=== PATIENT | female | born 1995 | race Caucasian/White ===

== ENCOUNTER 2017-01-31 02:59 | Inpatient (IN) | payer BC ==
[~2017-01-31] VITALS: Ht 167.6 cm; Wt 84.8 kg
[~2017-01-31 02:59] MED LIST: DOCU-144 PO; FER325 PO
[2017-01-31 03:31] VITALS: Ht 167.6 cm; Wt 84.8 kg
[2017-01-31 03:37] VITALS: BP 105/58; PULSE 81; RESP 19
[2017-01-31] MEDS ORDERED: ACETAMINOPHEN 325 MG TAB PO PRN (04:00)
[2017-01-31] MEDS: PANTOPRAZOLE 40 MG INJ IV SCH (05:07)
[2017-01-31 05:14] LABS: ADD SCAN DIFF NO
[2017-01-31 05:31] LABS: ABNORMAL IP MESSAGE 1; BASOPHILS % 0.2 % (0.0-2.0); HEMATOCRIT 24.6 % (37.0-47.0); MEAN CORPUSCULAR HEMOGLOBIN 19.3 pg (29.0-33.0); MEAN CORPUSCULAR VOLUME 68.9 fl (72.0-104.0); MONOCYTE # 0.7 10^3/ul (0.3-0.9); MONOCYTES % 8.1 % (0.0-13.0); NEUTROPHIL # 5.3 10^3/ul (1.6-7.5); NEUTROPHILS % 58.5 % (30.0-74.0); PLATELET COUNT 277 10^3/UL (140-415); RED BLOOD COUNT 3.57 10^6/ul (4.20-5.40); RED CELL DISTRIBUTION WIDTH 22.9 % (11.5-14.5)
[2017-01-31 05:35] LABS: ALBUMIN 3.5 g/dl (3.3-4.9)
[2017-01-31 05:36] LABS: POTASSIUM 3.6 mmol/L (3.5-5.1)
[2017-01-31 05:38] LABS: ALBUMIN/GLOBULIN RATIO 1.2; CREATININE 0.59 mg/dl (0.44-1.00); HEMOGLOBIN 6.9 g/dl (12.0-16.0); TOTAL PROTEIN 6.4 g/dl (6.1-8.1)
[2017-01-31 05:39] LABS: CALCIUM 8.5 mg/dl (8.4-10.2)
[2017-01-31 08:12] VITALS: BP 101/60; RESP 17
[2017-01-31] MEDS: DOCUSATE SODIUM 100 MG CAP PO SCH ×2 (09:16→20:52)
[2017-01-31] MEDS: FERROUS SULFATE (EC) 325 MG TAB PO SCH ×2 (09:17→20:52)
--- NOTE | 2017-01-31 11:59 | HP ---
Date/Time of Note Date/Time of Note DATE: 01/31/17 TIME: 11:39 Assessment/Plan VTE Prophylaxis VTE Prophylaxis Intervention: SCD's Lines/Catheters IV [facility]from [facility] Saline Lock Urinary Cath still in place: No Assessment/Plan Chief Complaint/Hosp Course 1. Severe anemia 2.Metrorhagia 3. Menorrhagia 4. Obesity Problems: Assessment/Plan 1. Continue blood transfusion 2. CT scan of pelvis without contrast to evaluate a left ovary cyst 3. Iron panel to evaluate blood clot abnormalities 4. Iron supplement daily to restore iron depletion HPI/ROS Admit Date/Time Admit Date/Time January 31, 2017 at 03:06 Hx of Present Illness pt presented herself to [place] [facility] with complaints on right pelvic pain, for last 4 days, vaginal bleeding for a month, dizziness, and one episode of vomiting.She received a unit PRBC in [place] and was transferred to [facility]. ROS Constitutional: nausea (yesterday) Eyes: no complaints ENT: no complaints Respiratory: no complaints Cardiovascular: lightheadedness Gastrointestinal: nausea, passing stool (constipation) Genitourinary: no complaints Musculoskeletal: no complaints Skin: no complaints Neurologic: headache (12/16 in [place] [facility], now decreased to 09/17) Endocrine: no complaints Lymphatic: no complaints Psychological: no complaints Immunologic: no complaints PMH/Family/Social Past Medical History pt reported similar symptoms in past with consecutive blood transfusion. She reported long lasting period sometimes for 3 weeks with great blood loss. Was found a left ovary cyst, was seen in primary care clinc often. Medical History: other (left ovary cyst. Tiffanie and metrorhagia) Past Surgical History Past Surgical Hx: no surgical history Family History Significant Family History: no pertinent family hx Social History no history of vaginal intercourse Alcohol Use: none Smoking Status: Never smoker Drug Use: none Exam/Review of Systems Vital Signs Vitals Vital Signs Date Time Temp Pulse Resp B/P Pulse Ox O2 Delivery O2 Flow Rate FiO2 01/31/17 08:12 98.7 76 17 101/60 99 01/31/17 03:37 Room Air Intake and Output 01/30/17 01/30/17 01/31/17 15:00 23:00 07:00 Intake Total 250 ml Balance 250 ml Exam Constitutional: alert Psych: no complaints Head: atraumatic, normocephalic Eyes: EOMI, nl conjunctiva ENMT: nl external ears & nose Neck: non-tender, supple Cardiovascular: nl pulses, regular rate and rhythm Gastrointestinal: nl liver, spleen, soft Genitourinary - Female: CVA tenderness, nl external genitalia, No CMT, No nl adnexae, No other, No uterus Musculoskeletal: nl extremities to inspection, nl gait and stance Extremities: normal pulses Skin: nl turgor Lymph: nl lymph nodes Labs Result Diagram: 01/31/1742901/31/17429 Medications Medications Current Medications Pantoprazole (Protonix Iv) 40 mg DAILY@06 IV Last administered on 01/31/17 05: 07; Admin Dose 40 MG; Start 01/31/17 at 06:00 Acetaminophen (Tylenol Tab) 650 mg Q6H PRN PO PAIN AND OR ELEVATED TEMP; Start 01/31/17 at 04:00 Docusate Sodium (Colace) 100 mg BID PO Last administered on 01/31/17 09:16; Admin Dose 100 MG; Start 01/31/17 at 09:00 Ferrous Sulfate (Ferrous Sulfate (Ec)) 325 mg BID PO Last administered on 09:17; Admin Dose 325 MG; Start 01/31/17 at 09:00 Procedures Procedures US pelvis was performed with complex cyst on the left adnexa ZAIN STEIN January 31, 2017 11:49
[2017-01-31] MEDS ORDERED: BARIUM SULF 2% 450 ML BTL (BERRY SMOOTHIE) PO ONE (12:00)
[2017-01-31] MEDS ORDERED: IOHEXOL 300MG/ML 150 ML BTL ONE (17:00)
[2017-01-31] MEDS ORDERED: SOD CHLORIDE 0.9% 100 ML ONE (17:00)
[2017-01-31] MEDS: CEFTRIAXONE 1 GM/50 ML (PMX) 50 ML IVPB SCH (18:46)
[2017-01-31 19:53] VITALS: BP 93/52; RESP 17
--- NOTE | 2017-01-31 21:18 | RADRPT ---
PROCEDURE: CT Abdomen and Pelvis with contrast. CLINICAL INDICATION: Abdomen and pelvis pain. History of left ovarian cyst with bleeding. TECHNIQUE: CT scan of the abdomen and pelvis with contrast was performed. The patient was scanned following the uncomplicated intravenous administration of 95 cc of Omnipaque-300. Coronal and sagit radha reformatted images were obtained from the axial source images. Images were reviewed on a [employer] PACS workstation. Total exam DLP is 639.43 mGy-cm. CTDIvol is 9.94 mGy. One or more of t he following dose reduction techniques were used: Automated exposure control, adjustment of the mA a nd/or kV according to patient size, use of iterative reconstruction technique. COMPARISON: Pelvic ultrasound dated 03/01/2016 which was normal. FINDINGS: The lung bases are normal. There is no pleural effusion. The liver is normal in size and attenuation. There is no focal hepatic lesion. The gallbladder and bile ducts are normal. The spleen is normal in size. There is no focal splenic lesion. Both adrenals are normal with no enlargement or mass. The pancreas is unremarkable with no mass or evidence of pancreatitis. Both kidneys demonstrate normal contrast enhancement. There is no renal mass or hydronephrosis. The abdominal aorta is not dilated. There is no retroperitoneal lymphadenopathy or mass. There is no pelvic lymphadenopathy or mass. The ovaries appear grossly normal. There is no hematoma or contrast extravasation. The bladder and distal ureters are normal. The periappendiceal region is unremarkable with no evidence of appendicitis. The appendix is well se en and appears normal. The bowel and mesentery are normal. A small amount of free fluid is present in the cul-de-sac. There is no free air. The osseous structures are unremarkable with no fracture or lytic lesion. IMPRESSION: 1. Normal ovaries. No hematoma or contrast extravasation in the pelvis. 2. Normal appendix. 3. Small amount of free fluid in the cul-de-sac which may be physiologic. 4. Otherwise unremarkable study. RPTAT: QQ .Mani Paulino MD, MD Date Time Electronically viewed and signed by .Mani Paulino MD, on 01/31/2017 21:18 .R/
[2017-02-01 05:20] LABS: ADD SCAN DIFF NO
[2017-02-01] MEDS: PANTOPRAZOLE 40 MG INJ IV SCH (05:25)
[2017-02-01 05:28] LABS: ABNORMAL IP MESSAGE 1; BASOPHILS % 0.4 % (0.0-2.0); HEMATOCRIT 29.5 % (37.0-47.0); HEMOGLOBIN 8.4 g/dl (12.0-16.0); LYMPHOCYTES # 3.2 10^3/ul (0.8-2.9); LYMPHOCYTES % 41.5 % (18.0-55.0); MEAN CORPUSCULAR HGB CONC 28.5 g/dl (32.0-37.0); MEAN CORPUSCULAR VOLUME 70.2 fl (72.0-104.0); MEAN PLATELET VOLUME 10.7 fl (7.4-10.4); MONOCYTE # 0.8 10^3/ul (0.3-0.9); NEUTROPHIL # 3.6 10^3/ul (1.6-7.5); NEUTROPHILS % 47.8 % (30.0-74.0); PLATELET COUNT 288 10^3/UL (140-415); RED CELL DISTRIBUTION WIDTH 23.5 % (11.5-14.5); WHITE BLOOD COUNT 7.6 10^3/ul (4.8-10.8)
[2017-02-01 05:49] LABS: IRON 21 ug/dl (35-150)
[2017-02-01 05:50] LABS: CREATININE 0.71 mg/dl (0.44-1.00); POTASSIUM 3.7 mmol/L (3.5-5.1)
[2017-02-01 05:58] LABS: TOTAL IRON BINDING CAPACITY 452 ug/dl (241-421)
[2017-02-01 08:21] VITALS: BP 102/57; RESP 18
[2017-02-01] MEDS: FERROUS SULFATE (EC) 325 MG TAB PO SCH (08:47)
[2017-02-01] MEDS: DOCUSATE SODIUM 100 MG CAP PO SCH (08:47)
--- NOTE | 2017-02-01 11:43 | PN ---
Date/Time of Note Date/Time of Note DATE: 02/01/17 TIME: 11:41 Assessment/Plan VTE Prophylaxis VTE Prophylaxis Intervention: ambulation Lines/Catheters IV C[facility] Type (from [facility] Saline Lock Urinary Cath still in place: No Assessment/Plan Chief Complaint/Hosp Course 1. Severe anemia, better aftr Blood transfusion 2.Metrorhagia 3. Menorrhagia 4. Obesity Problems: Assessment/Plan 1. Iron supplements are started. Hg 8.4 Subjective 24 Hr Interval Summary Constitutional: improved, no complaints Eyes: no complaints Cardiovascular: no complaints Genitourinary: no complaints Exam/Review of Systems Vital Signs Vitals Vital Signs Date Time Temp Pulse Resp B/P Pulse Ox O2 Delivery O2 Flow Rate FiO2 02/01/17 08:21 98.0 80 18 102/57 99 01/31/17 03:37 Room Air Intake and Output 01/31/17 01/31/17 02/01/17 15:00 23:00 07:00 Intake Total 300 ml 630 ml 720 ml Balance 300 ml 630 ml 720 ml Exam Constitutional: alert, oriented, well developed Psych: no complaints Head: normocephalic Eyes: nl conjunctiva ENMT: nl external ears & nose Neck: supple Respiratory: clear to auscultation Cardiovascular: regular rate and rhythm Gastrointestinal: soft Results Result Diagram: 02/01/17 0440 02/01/17 0440 Results 24 hrs Laboratory Tests Test 01/31/17 13:40 02/01/17 04:40 Urine Test NEGATIVE White Blood Count 7.6 Red Blood Count 4.20 Hemoglobin 8.4 #L Hematocrit 29.5 L Mean Corpuscular Volume 70.2 L Mean Corpuscular Hemoglobin 20.0 L Mean Corpuscular Hemoglobin Concent 28.5 L Red Cell Distribution Width 23.5 H Platelet Count 288 Mean Platelet Volume 10.7 H Neutrophils % 47.8 Lymphocytes % 41.5 Monocytes % 10.0 Eosinophils % 0.0 Basophils % 0.4 Nucleated Red Blood Cells % 0.0 Neutrophils # 3.6 Lymphocytes # 3.2 H Monocytes # 0.8 Eosinophils # 0.0 Basophils # 0.0 Nucleated Red Blood Cells # 0.0 Activated Partial Thromboplast Time 28.7 Sodium Level 139 Potassium Level 3.7 Chloride Level 107 Carbon Dioxide Level 26 Anion Gap 10 Blood Urea Nitrogen 10 Creatinine 0.71 Glucose Level 90 Calcium Level 9.0 Iron Level 21 L Total Iron Binding Capacity 452 H Percent Iron Saturation 5 L Medications Medications Current Medications Pantoprazole (Protonix Iv) 40 mg DAILY@06 IV Last administered on 02/01/17 05: 25; Admin Dose 40 MG; Start 01/31/17 at 06:00 Acetaminophen (Tylenol Tab) 650 mg Q6H PRN PO PAIN AND OR ELEVATED TEMP; Start 01/31/17 at 04:00 Docusate Sodium (Colace) 100 mg BID PO Last administered on 02/01/17 08:47; Admin Dose 100 MG; Start 01/31/17 at 09:00 Ferrous Sulfate 325 mg 325 mg BID PO Last administered on 02/01/17 08:47; Admin Dose 325 MG; Start 01/31/17 at 09:00 Ceftriaxone Sodium (Rocephin) 50 ml @ 100 mls/hr Q24H IVPB Last administered on 01/31/17 18:46; Admin Dose 100 MLS/HR; Start 01/31/17 at 18:30 ZAIN STEIN February 01, 2017 11:43
[2017-02-01] MEDS ORDERED: SOD FERRIC GLUC COMPLX 125 MG in SOD CHLORIDE 0.9% 100 ML IVPB SCH (14:00)
[2017-02-01] MEDS: CEFTRIAXONE 1 GM/50 ML (PMX) 50 ML IVPB SCH (16:49)
--- NOTE | 2017-02-01 17:53 | PDOCDIS ---
Discharge Instructions CONDITION Patient Condition: Stable HOME CARE INSTRUCTIONS: Special Diet: regular ACTIVITY: Activity Restrictions: Slowly Increase Activity FOLLOW UP/APPOINTMENTS Appointments f/u own pcp 1 wk YO GIANG MD February 01, 2017 17:53
[2017-02-01] MEDS ORDERED: FER325 PO (17:54)
--- NOTE | 2017-02-01 17:56 | QN ---
Documentation Comment [id number] YO GIANG MD February 01, 2017 17:56
[2017-02-02] MEDS ORDERED: PANTOPRAZOLE (EC) 40 MG TAB PO SCH (06:00)
--- NOTE | 2017-02-02 06:31 | DS ---
DATE OF ADMISSION: 01/31/2017 DATE OF DISCHARGE: 02/01/2017 HOSPITAL COURSE: The patient is a 21-year-old female who was admitted with anemia and menorrhagia. The patient's urine culture came back negative. The patient received blood transfusion and also IV iron. The patient's hematocrit is stable. The patient is not bleeding. DISCHARGE DIAGNOSES: 1. History of menorrhagia. 2. Anemia, status post blood transfusion. DISCHARGE MEDICATIONS: Continue iron tablet. FOLLOWUP: With own PCP. DISPOSITION: The patient is stable at the time of discharge. Dictated By: YO GIANG MD BS/NTS Conf#: [id number] DID#: [id number]
== END 2017-02-01 19:01 | disposition home or self-care (01) | DRG 812 ==
LOC: PP2 03:06
PROVIDERS: ADMIT Internal Medicine Nephrology; ATTEND Internal Medicine Nephrology
PROC: 30233N1 Transfusion of Nonautologous Red Blood Cells into Peripheral Vein, Percutaneous Approach (ICD-10-PCS; principal; 2017-01-31)
DX: D64.9 Anemia, unspecified (principal); N92.0 Excessive and frequent menstruation with regular cycle
CPT/HCPCS: 36430; 74177; 80048; 80053; 83540; 84703; 85025; 85730; 86850; 86870; 86900; 86901; 86920; 87086; C9113; J0696; J2916; P9016; Q9967

== ENCOUNTER 2019-05-16 19:24 | Inpatient (IN) | payer BC ==
[~2019-05-16] VITALS: Ht 180.3 cm; Wt 109.4 kg
[2019-05-16] MEDS ORDERED: ACETAMINOPHEN 325 MG TAB PO ONE (20:00)
[2019-05-16] MEDS ORDERED: IBUPROFEN 600 MG TAB PO ONE (20:00)
[2019-05-16] MEDS ORDERED: SOD CHLORIDE 0.9% 0 ML IV ONE (20:40)
[2019-05-16] MEDS ORDERED: ONDANSETRON 4 MG INJ IV PRN (21:30)
[2019-05-16] MEDS ORDERED: ACETAMINOPHEN 325 MG TAB PO PRN (21:30)
[2019-05-17 00:36] VITALS: BP 124/73; PULSE 106; RESP 18
[2019-05-17 00:54] VITALS: Ht 180.3 cm; Wt 109.4 kg
[2019-05-17] MEDS ORDERED: ACETAMINOPHEN 325 MG TAB PO PRN (01:30)
[2019-05-17] MEDS ORDERED: DOCUSATE SODIUM 100 MG CAP PO PRN (01:30)
[2019-05-17] MEDS ORDERED: ONDANSETRON 4 MG INJ IV PRN (01:30)
[2019-05-17 01:45] VITALS: BP 115/68; PULSE 95; RESP 18
[2019-05-17 07:38] VITALS: BP 106/55; PULSE 74; RESP 18
[2019-05-17] MEDS: FERROUS SULFATE (EC) 325 MG TAB PO SCH ×2 (08:42→13:00)
[2019-05-17 13:57] VITALS: BP 103/59; PULSE 83; RESP 16
[2019-05-17] MEDS: SOD FERRIC GLUC COMPLX 125 MG in SOD CHLORIDE 0.9% 100 ML IVPB SCH (14:33)
[2019-05-17 19:32] VITALS: BP 114/65; PULSE 81; RESP 18
[2019-05-18 02:18] VITALS: BP 108/63; PULSE 79; RESP 18
[2019-05-18 07:39] VITALS: BP 102/61; PULSE 72; RESP 18
[2019-05-18] MEDS: SOD FERRIC GLUC COMPLX 125 MG in SOD CHLORIDE 0.9% 100 ML IVPB SCH (12:33)
[2019-05-18 14:14] VITALS: BP 110/60; PULSE 81; RESP 18
== END 2019-05-18 18:35 | disposition home or self-care (01) | DRG 812 ==
LOC: FTE 19:24 → 2NE 21:03
PROVIDERS: ADMIT Internal Medicine; ATTEND Internal Medicine
PROC: 30233N1 Transfusion of Nonautologous Red Blood Cells into Peripheral Vein, Percutaneous Approach (ICD-10-PCS; principal; 2019-05-16)
DX: D50.0 Iron deficiency anemia secondary to blood loss (chronic) (principal); E66.9 Obesity, unspecified; N92.0 Excessive and frequent menstruation with regular cycle
CPT/HCPCS: 36430; 76856; 80048; 81003; 81025; 82607; 82746; 83010; 83540; 85025; 85045; 86850; 86870; 86900; 86901; 86920; J2916; J7040; P9016